=== PATIENT | male | born 1990 | race Caucasian/White ===

== ENCOUNTER 2024-01-24 11:36 | Emergency (ER) | payer MEDICAID ==
[~2024-01-24] VITALS: Ht 170.2 cm; Wt 69.1 kg
[~2024-01-24 11:36] MED LIST: NOCURR
[2024-01-24 11:39] VITALS: TEMP 98
[2024-01-24 13:00] VITALS: BP 122/80; PULSE 85; RESP 16
== END 2024-01-24 14:01 | disposition home or self-care (01) ==
LOC: EMS 11:37
DX: S90.822A Blister (nonthermal), left foot, initial encounter (principal); F41.9 Anxiety disorder, unspecified; F17.210 Nicotine dependence, cigarettes, uncomplicated; F15.90 Other stimulant use, unspecified, uncomplicated; X58.XXXA Exposure to other specified factors, initial encounter; Y93.89 Activity, other specified; Y92.89 Other specified places as the place of occurrence of the external cause; Y99.8 Other external cause status
CPT/HCPCS: 10160; 99284; Z7502